=== PATIENT | male | born 1980 | race Two or more races ===

== ENCOUNTER 2024-08-15 11:22 | Emergency (ER) | payer OTHER ==
[~2024-08-15] VITALS: Ht 157.5 cm; Wt 101.6 kg
[2024-08-15] MEDS ORDERED: FAMOtidine 10 MG/ML (4ML VIAL) IV PUSH ONE (12:30)
[2024-08-15 12:56] LABS: HEMATOCRIT 47.2 % (39.0-48.0); MEAN CELL VOLUME 84.7 fL (80.0-100.00); MEAN CORPUSCULAR HEMOGLOBIN 30.5 pg (27.00-32.0); PLATELET COUNT 187 K/uL (150-450); RED BLOOD COUNT 5.57 M/uL (4.00-6.00); RED CELL DISTRIBUTION WIDTH 13.8 % (11.5-14.5)
[2024-08-15] MEDS ORDERED: ZITHROMAX500 MG PO (13:19)
[2024-08-15] MEDS ORDERED: PEPCID20 MG PO (13:19)
== END 2024-08-15 13:26 | disposition home or self-care (01) ==
LOC: ER 11:23
PROVIDERS: General Practice
DX: J00 Acute nasopharyngitis [common cold] (principal); Z20.822 Contact with and (suspected) exposure to COVID-19